=== PATIENT | male | born 1995 | race African-American/Black ===

== ENCOUNTER 2022-02-22 23:46 | Emergency (ER) | payer OTHER ==
[~2022-02-22] VITALS: Ht 182.9 cm; Wt 203.9 kg
[2022-02-23] VITALS: BP 117/72
[2022-02-23] MEDS ORDERED: CEFTRIAXONE SODIUM 500 MG/VIAL IM ONE (03:00)
[2022-02-23] MEDS ORDERED: DOXYCYCLINE HYCLATE 100MG CAPSULE PO ONE (03:00)
[2022-02-23] MEDS ORDERED: EMTR1TAB15 MT (03:09)
[2022-02-23] MEDS ORDERED: DOLU50TA MT (03:09)
[2022-02-23] MEDS ORDERED: DOXY-326 MT (03:09)
[2022-02-23 04:09] LABS: CLARITY URINE CLEAR (CLEAR); COLOR URINE YELLOW (YELLOW); KETONES URINE TRACE (NEGATIVE); LEUKOCYTE ESTERASE URINE NEGATIVE (NEGATIVE); NITRITE URINE NEGATIVE (NEGATIVE); OCCULT BLOOD URINE NEGATIVE (NEGATIVE); PH URINE 6.5 (4.5-8.0); PROTEIN URINE TRACE (NEGATIVE); SPECIFIC GRAVITY URINE 1.029 (1.005-1.030)
[2022-02-24 10:11] LABS: HIV SCREEN 4G Non Reactive (Non Reactive)
[2022-02-25 09:11] LABS: NEISSERIA GONORRHOEAE NAA Negative (Negative)
== END 2022-02-23 04:10 | disposition home or self-care (01) ==
LOC: ER 23:46
DX: R36.9 Urethral discharge, unspecified (principal); Z20.2 Contact with and (suspected) exposure to infections with a predominantly sexual mode of transmission; Z90.89 Acquired absence of other organs
CPT/HCPCS: 81003; 86592; 87389; 87491; 87529; 87591; 96372; 99283; J0696